=== PATIENT | female | born 1980 | race Caucasian/White ===

== ENCOUNTER 2017-09-08 07:10 | Inpatient (IN) | payer MEDICAID, SELFPAY ==
[2017-09-08] VITALS (7 sets, daily range): BP systolic 110–125; BP diastolic 64–79; PULSE 73–94; RESP 16–20; TEMP 36.1–37.4; O2SAT 97–100; BMI 16.9; BMI 18.1
--- NOTE | 2017-09-08 07:25 | ED.VISSUMM ---
- ER Visit Summary Date of Service: 09/08/17 Chief Complaint: Heroin withdrawal History of Present Illness: The patient is a 37 F who presents with nausea and vomiting that began last night. Patient states she normally uses 1 g of heroin per day and her last use was 2 days ago. Patient states she is having some abdominal cramping and restlessness. Patient denies any fevers. Patient denies any diarrhea but thinks she may be starting to get diarrhea. Patient denies any chest pain or palpitations. Physical Examination: Vital signs are stable. Patient is afebrile. Patient is in no acute distress. Oral mucosa is pink and moist. Pupils are equal, round, and reactive to light bilaterally. Heart was regular rate and rhythm. Lungs are clear and equal bilaterally. Abdomen is soft. Bowel sounds are normal. There is mild diffuse tenderness. There is no rebound or guarding noted. Cranial nerves II through XII are intact. There are no focal motor or sensory deficits noted. Emergency Department Course and Treatment: Patient was given a dose of Benadryl here for her restless legs. Patient had no improvement with this. Patient was given a dose of Ativan here. Patient was given IV fluids. CBC and comprehensive metabolic profile were obtained and are pending. [facility] was in to evaluate the patient and stated the patient did meet criteria for inpatient treatment. Case was discussed with the hospitalist. Patient will be admitted for detox. Disposition: Admission Impression: Opiate withdrawal This note was generated with [employer] dictation software. It may contain incorrect words, spelling, and punctuation that were not noted in review of the chart prior to signing ED Disposition - Plan for ED Patient: Disposition: Acute Care Hospital [facility] Chief Complaint: Subst Abuse Diagnosis: Opiate withdrawal Referrals: NOT,DEFINED [NON-STAFF] -
--- NOTE | 2017-09-08 07:28 | ED.DCSUM_ITS ---
- ER Visit Summary Date of Service: 09/08/17 Chief Complaint: Heroin withdrawal History of Present Illness: The patient is a 37 F who presents with nausea and vomiting that began last night. Patient states she normally uses 1 g of heroin per day and her last use was 2 days ago. Patient states she is having some abdominal cramping and restlessness. Patient denies any fevers. Patient denies any diarrhea but thinks she may be starting to get diarrhea. Patient denies any chest pain or palpitations. Physical Examination: Vital signs are stable. Patient is afebrile. Patient is in no acute distress. Oral mucosa is pink and moist. Pupils are equal, round, and reactive to light bilaterally. Heart was regular rate and rhythm. Lungs are clear and equal bilaterally. Abdomen is soft. Bowel sounds are normal. There is mild diffuse tenderness. There is no rebound or guarding noted. Cranial nerves II through XII are intact. There are no focal motor or sensory deficits noted. Emergency Department Course and Treatment: Patient was given a dose of Benadryl here for her restless legs. Patient had no improvement with this. Patient was given a dose of Ativan here. Patient was given IV fluids. CBC and comprehensive metabolic profile were obtained and are pending. [facility] was in to evaluate the patient and stated the patient did meet criteria for inpatient treatment. Case was discussed with the hospitalist. Patient will be admitted for detox. Disposition: Admission Impression: Opiate withdrawal This note was generated with [employer] dictation software. It may contain incorrect words, spelling, and punctuation that were not noted in review of the chart prior to signing ED Disposition - Plan for ED Patient: Disposition: Acute Care Hospital [facility] Chief Complaint: Subst Abuse Diagnosis: Opiate withdrawal Referrals: NOT,DEFINED [NON-STAFF] -
[2017-09-08] MEDS: 0.9% Normal Saline 1,000 ML 1000 ML IV (07:35)
[2017-09-08] MEDS: Ondansetron 4 MG/2 ML Vial IV (07:35)
[2017-09-08] MEDS: DiphenhydrAMINE 50 MG/ML Syringe 25 MG IV (07:36)
[2017-09-08 08:23] LABS: Absolute Lymphocyte Count 1.16 X10^3/ul (0.83-4.51); Absolute Neutrophil Count 11.1 X10^3/uL (2.0-7.7); Basophil# 0.01 X10^3/uL; Basophil% 0.1 % (0-1); Hematocrit 44.9 % (37-47); Hemoglobin 15.4 g/dl (12.0-15.0); Lymphocyte # 1.16 X10^3/ul (4.0); Lymphocyte % 9.2 % (19-41); Mean Corp Hgb Conc 34.3 g/gl (32-36); Mean Corpuscular Volume 90.3 fL (81-99); Mean Platelet Vol. 9.6 fl (6.2-12.0); Monocyte# 0.34 X10^3/uL; Monocyte% 2.7 % (0-10); Neutrophil # 11.07 X10^3/uL (2.7-7.7); Neutrophil % 87.7 % (47-70); Platelet Count 269 K/mm3 (150-450); RBC Distribution Width CV 13.1 % (11.6-14.6); RBC Distribution Width SD 42.8 fl (35.1-43.9); Red Blood Count 4.97 M/mm3 (4.2-5.4); White Blood Count 12.6 K/mm3 (4.4-11.0)
[2017-09-08 08:24] LABS: POSITIVE COUNT NO; POSITIVE DIFFERENTIAL NO; POSITIVE MORPHOLOGY NO
[2017-09-08 08:37] LABS: ALB/GLOB Ratio 0.8 RATIO (0.9-2.4); AST(SGOT) 41 U/L (15-37); Alanine Aminotransfer ALT/SGPT 62 U/L (13-56); Albumin, Serum 3.8 g/dL (3.2-5.0); Alkaline Phosphatase 44 U/L (45-117); Anion Gap 9 (5-15); BUN 12 mg/dL (7-18); BUN/Creat Ratio 16.1 RATIO (10-20); Calcium,Total 9.2 mg/dL (8.5-10.1); Chloride 106 mmol/L (98-107); Creatinine, Serum 0.75 mg/dL (0.55-1.02); EST Glomerular Filtration Rate 94 mL/min (>60); Est Glom Filt Rate - Afr Amer 113 mL/min (>60); Estimated Creatinine Clearance 78.72 ml/min; Globulin 4.7 g/dL (2.2-4.2); Glucose 137 mg/dL (74-106); Potassium 3.5 mmol/L (3.5-5.1); Protein, Total 8.5 g/dL (6.4-8.2); Sodium Level 140 mmol/L (136-145)
[2017-09-08] MEDS: LORazepam 2 MG/ML Syringe 1 MG IV (08:38)
[2017-09-08 08:42] LABS: Pregnancy, Serum, hCG Quali. NEGATIVE Negative (0-9 Nonpreg)
--- NOTE | 2017-09-08 09:41 | PCM.HP.STD ---
Problem List (1) Tobacco abuse Status: Chronic (2) Hepatitis C Status: Chronic (3) Opiate withdrawal Status: Acute History of Present Illness Date of Admission: 09/08/17 Chief Complaint: Heroin withdrawal. The patient is a 37 year old F with past medical history as mentioned above presented to the emergency room because of restlessness, shakiness with nausea and vomiting. His symptoms started last night mainly with intractable nausea and vomiting, more than 8 times since last night, associated with vague generalized abdominal pain described as crampy pain, not radiating and without aggravating or relieving factors. Her other complaint was restlessness and anxiety. She complains of restless legs that has been going on since yesterday, very hard to control and associated with shakiness of her body. She has been using IV heroin for the last 10 years almost daily. She uses around 1 g of heroin every day and her last dose was Thursday evening. No chest pain or shortness of breath. Denied cough or sputum production. She denies fever or chills. She denies diarrhea or constipation. In the emergency room, her vital signs were stable. Her routine blood work was remarkable for mild leukocytosis. LFT revealed slightly elevated liver transaminases likely because of chronic hepatitis C. Serum test was negative. She is being admitted for acute opioid withdrawal for medical stabilization. Past Medical History Past Medical History (Chronic Problems): Chronic Problems Tobacco abuse (Chronic) Hepatitis C (Chronic) Allergies No Known Allergies Allergy (Verified 09/08/17 07:14) Home Medications: Ambulatory Orders Medication Instructions Recorded NK [NK] 09/08/17 Surgical History: - - Tubal ligation. 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 Denies: Chills, Fever, Weakness Eyes: Denies: Blurred vision, Double vision, Drainage, Redness HEENT: Denies: Difficulty Hearing, Ear Pain, Eye Pain, Nasal Congestion, Sore Throat Cardiovascular: Denies: Chest Pain, Chest Pressure, Edema, Heaviness, Palpitations, Syncope Respiratory: Denies: Cough, Pleuritic Pain, Shortness of Breath, Sputum production, Wheezing Gastrointestinal: Reports: Abdominal Pain, Diarrhea, Nausea, Vomiting. Denies: Constipation, Hematochezia, Melena Genitourinary: Denies: Dysuria, Frequency, Hematuria Musculoskeletal: Denies: Arm Pain, Back Pain, Foot Pain Skin: Denies: Dryness, Rash Neurological: Denies: Balance problems, Change in Speech, Slurred speech, Confusion, Headaches, Incoordination, Numbness Psychiatric: Reports: Anxiety. Denies: Depression, Homicidal Ideations, Suicidal Ideations Endocrine: Denies: Change in Body Habitus, Polydipsia VTE Information - Inpt Only VTE Present on Admission: No VTE Mechan Device Prophylaxis: None VTE Pharm Prophylaxis ordered?: No Patient Problems: Active and Suspected Problems Opiate withdrawal (Acute) - Physical Exam General: Alert, Oriented x3, Cooperative, - - Anxious, restless. HEENT: Atraumatic, PERRLA, EOMI Oral: Moist Mucosa, No Gingival or Mucosal Lesions/ Ulcerations Neck: Supple, No JVD, Negative Carotid Bruits, Trachea Midline, Thyroid Normal Size and Texture Lungs: Clear to auscultation, No rhonchi, No wheeze, No rales, Diminished Cardiovascular: Regular rate, Regular Rhythm, Normal S1, Normal S2, No murmurs, PMI Normal Abdomen: Bowel Sounds Present, Soft, Non Tender, Non-Distended, No Hepato-splenomegaly Extremities: No clubbing, No cyanosis, No edema Skin: No rashes, No breakdown Lymphatic: No Cervical, Supraclavicular, or Inguinal Adenopathy Neurological: Cranial nerves II-XII grossly intact, Motor Exam 5/5 strength throughout Psych/Mental Status: Anxious, Restless Vital Signs Temp Pulse Resp BP Pulse Ox 98.9 F 73 18 118/72 100 09/08/17 09:24 09/08/17 09:24 09/08/17 09:24 09/08/17 09:24 09/08/17 08:39 Weight: 112 lb 6.972 oz Body Mass Index (BMI) 18.1 Laboratory Tests 09/08/17 09/08/17 09/08/17 Range/Units 08:10 08:10 08:10 WBC 12.6 H (4.4-11.0) K/mm3 RBC 4.97 (4.2-5.4) M/mm3 Hgb 15.4 H (12.0-15.0) g/dl Hct 44.9 (37-47) % MCV 90.3 (81-99) fL MCH 31.0 (27.0-32.0) pg MCHC 34.3 (32-36) g/gl RDW 13.1 (11.6-14.6) % RDW Differential 42.8 (35.1-43.9) fl Plt Count 269 (150-450) K/mm3 MPV 9.6 (6.2-12.0) fl Immature Gran % (Auto) 0.300 (0.0-0.9) % Neut % (Auto) 87.7 H (47-70) % Lymph % (Auto) 9.2 L (19-41) % [place] % (Auto) 2.7 (0-10) % Eos % (Auto) 0.0 (0-5) % Baso % (Auto) 0.1 (0-1) % Absolute Neuts (auto) 11.1 H (2.0-7.7) X10^3/uL Absolute Lymphs (auto) 1.16 (0.83-4.51) X10^3/ul Total Counted Not Reportable Sodium 140 (136-145) mmol/L Potassium 3.5 (3.5-5.1) mmol/L Chloride 106 (98-107) mmol/L Carbon Dioxide 25.0 (21.0-32.0) mmol/L Anion Gap 9 (5-15) BUN 12 (7-18) mg/dL Creatinine 0.75 (0.55-1.02) mg/dL Estim Creat Clear Calc 78.72 ml/min Est GFR (MDRD) Af Amer 113 (>60) mL/min Est GFR (MDRD) Non-Af 94 (>60) mL/min BUN/Creatinine Ratio 16.1 (10-20) RATIO Glucose 137 H (74-106) mg/dL Calcium 9.2 (8.5-10.1) mg/dL Total Bilirubin 0.40 (0.20-1.00) mg/dL AST 41 H (15-37) U/L ALT 62 H (13-56) U/L Alkaline Phosphatase 44 L (45-117) U/L Total Protein 8.5 H (6.4-8.2) g/dL Albumin 3.8 (3.2-5.0) g/dL Globulin 4.7 H (2.2-4.2) g/dL Albumin/Globulin Ratio 0.8 L (0.9-2.4) RATIO Serum , Qual NEGATIVE (0-9 Nonpreg) Negative Assessment/Plan Active and Suspected Problems Opiate withdrawal (Acute) This is a 37 years old female patient presented to the medicine because of symptoms of restlessness, shakiness, restlessness, nausea and vomiting as well as vague abdominal pain in context of 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 #1 acute opioid withdrawal: Patient has been using IV heroin for the last 10 years, almost daily, around 1 g of heroin every day. Last use was this past Thursday. She denied use of any other drugs. She is a smoker but denied alcohol drinking. She never been on detox program in the past. At this time, vital signs are stable. Routine blood work is remarkable for mild leukocytosis likely because of acute distress and anxiety. Serum test was negative. Plan: Admit to [facility] floor, regular diet, check serum lipase, urine drug screen, blood alcohol level, initiate [facility] protocol with tapering course of Subutex, as needed Tylenol, Catapres, Bentyl, Vistaril, methocarbamol, Zofran, Mirapex and Seroquel. #2 chronic hepatitis C: According to the patient, she had liver biopsy last year and she was told that there is no indication for treatment. Her liver transaminases are slightly elevated. Plan to monitor. #3 tobacco abuse: NicoDerm patches decided. #4 DVT prophylaxis: Low risk patient, no prophylaxis indicated. This note was generated with [employer] software. It may contain incorrect words, spelling, and punctuation that were not noted in checking the note before signing. Code Visit Inpatient E&M: 75451 Init Hosp L2
--- NOTE | 2017-09-08 09:46 | HP.PCM_ITS ---
Problem List (1) Tobacco abuse Status: Chronic (2) Hepatitis C Status: Chronic (3) Opiate withdrawal Status: Acute History of Present Illness Date of Admission: 09/08/17 Chief Complaint: Heroin withdrawal. The patient is a 37 year old F with past medical history as mentioned above presented to the emergency room because of restlessness, shakiness with nausea and vomiting. His symptoms started last night mainly with intractable nausea and vomiting, more than 8 times since last night, associated with vague generalized abdominal pain described as crampy pain, not radiating and without aggravating or relieving factors. Her other complaint was restlessness and anxiety. She complains of restless legs that has been going on since yesterday , very hard to control and associated with shakiness of her body. She has been using IV heroin for the last 10 years almost daily. She uses around 1 g of heroin every day and her last dose was Thursday evening. No chest pain or shortness of breath. Denied cough or sputum production. She denies fever or chills. She denies diarrhea or constipation. In the emergency room, her vital signs were stable. Her routine blood work was remarkable for mild leukocytosis. LFT revealed slightly elevated liver transaminases likely because of chronic hepatitis C. Serum test was negative. She is being admitted for acute opioid withdrawal for medical stabilization. Past Medical History Past Medical History (Chronic Problems): Chronic Problems Tobacco abuse (Chronic) Hepatitis C (Chronic) Allergies No Known Allergies Allergy (Verified 09/08/17 07:14) Home Medications: Ambulatory Orders Medication Instructions Recorded NK [NK] 09/08/17 Surgical History: - - Tubal ligation. 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 Denies: Chills, Fever, Weakness Eyes: Denies: Blurred vision, Double vision, Drainage, Redness HEENT: Denies: Difficulty Hearing, Ear Pain, Eye Pain, Nasal Congestion, Sore Throat Cardiovascular: Denies: Chest Pain, Chest Pressure, Edema, Heaviness, Palpitations, Syncope Respiratory: Denies: Cough, Pleuritic Pain, Shortness of Breath, Sputum production, Wheezing Gastrointestinal: Reports: Abdominal Pain, Diarrhea, Nausea, Vomiting. Denies: Constipation, Hematochezia, Melena Genitourinary: Denies: Dysuria, Frequency, Hematuria Musculoskeletal: Denies: Arm Pain, Back Pain, Foot Pain Skin: Denies: Dryness, Rash Neurological: Denies: Balance problems, Change in Speech, Slurred speech, Confusion, Headaches, Incoordination, Numbness Psychiatric: Reports: Anxiety. Denies: Depression, Homicidal Ideations, Suicidal Ideations Endocrine: Denies: Change in Body Habitus, Polydipsia VTE Information - Inpt Only VTE Present on Admission: No VTE Mechan Device Prophylaxis: None VTE Pharm Prophylaxis ordered?: No Patient Problems: Active and Suspected Problems Opiate withdrawal (Acute) - Physical Exam General: Alert, Oriented x3, Cooperative, - - Anxious, restless. HEENT: Atraumatic, PERRLA, EOMI Oral: Moist Mucosa, No Gingival or Mucosal Lesions/ Ulcerations Neck: Supple, No JVD, Negative Carotid Bruits, Trachea Midline, Thyroid Normal Size and Texture Lungs: Clear to auscultation, No rhonchi, No wheeze, No rales, Diminished Cardiovascular: Regular rate, Regular Rhythm, Normal S1, Normal S2, No murmurs, PMI Normal Abdomen: Bowel Sounds Present, Soft, Non Tender, Non-Distended, No Hepato- splenomegaly Extremities: No clubbing, No cyanosis, No edema Skin: No rashes, No breakdown Lymphatic: No Cervical, Supraclavicular, or Inguinal Adenopathy Neurological: Cranial nerves II-XII grossly intact, Motor Exam 5/5 strength throughout Psych/Mental Status: Anxious, Restless Vital Signs Temp Pulse Resp BP Pulse Ox 98.9 F 73 18 118/72 100 09/08/17 09:24 09/08/17 09:24 09/08/17 09:24 09/08/17 09:24 09/08/17 08:39 Weight: 112 lb 6.972 oz Body Mass Index (BMI) 18.1 Laboratory Tests 3 09/08/17 09/08/17 09/08/17 Range/Units 08:10 08:10 08:10 WBC 12.6 H (4.4-11.0) K/mm3 RBC 4.97 (4.2-5.4) M/mm3 Hgb 15.4 H (12.0-15.0) g/dl Hct 44.9 (37-47) % MCV 90.3 (81-99) fL MCH 31.0 (27.0-32.0) pg MCHC 34.3 (32-36) g/gl RDW 13.1 (11.6-14.6) % RDW Differential 42.8 (35.1-43.9) fl Plt Count 269 (150-450) K/mm3 MPV 9.6 (6.2-12.0) fl Immature Gran % (Auto) 0.300 (0.0-0.9) % Neut % (Auto) 87.7 H (47-70) % Lymph % (Auto) 9.2 L (19-41) % [place] % (Auto) 2.7 (0-10) % Eos % (Auto) 0.0 (0-5) % Baso % (Auto) 0.1 (0-1) % Absolute Neuts (auto) 11.1 H (2.0-7.7) X10^3/uL Absolute Lymphs (auto) 1.16 (0.83-4.51) X10^3/ul Total Counted Not Reportable Sodium 140 (136-145) mmol/L Potassium 3.5 (3.5-5.1) mmol/L Chloride 106 (98-107) mmol/L Carbon Dioxide 25.0 (21.0-32.0) mmol/L Anion Gap 9 (5-15) BUN 12 (7-18) mg/dL Creatinine 0.75 (0.55-1.02) mg/dL Estim Creat Clear Calc 78.72 ml/min Est GFR (MDRD) Af Amer 113 (>60) mL/min Est GFR (MDRD) Non-Af 94 (>60) mL/min BUN/Creatinine Ratio 16.1 (10-20) RATIO Glucose 137 H (74-106) mg/dL Calcium 9.2 (8.5-10.1) mg/dL Total Bilirubin 0.40 (0.20-1.00) mg/dL AST 41 H (15-37) U/L ALT 62 H (13-56) U/L Alkaline Phosphatase 44 L (45-117) U/L Total Protein 8.5 H (6.4-8.2) g/dL Albumin 3.8 (3.2-5.0) g/dL Globulin 4.7 H (2.2-4.2) g/dL Albumin/Globulin Ratio 0.8 L (0.9-2.4) RATIO Serum , Qual NEGATIVE (0-9 Nonpreg) Negative Assessment/Plan Active and Suspected Problems Opiate withdrawal (Acute) This is a 37 years old female patient presented to the medicine because of symptoms of restlessness, shakiness, restlessness, nausea and vomiting as well as vague abdominal pain in context of 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 #1 acute opioid withdrawal: Patient has been using IV heroin for the last 10 years, almost daily, around 1 g of heroin every day. Last use was this past Thursday. She denied use of any other drugs. She is a smoker but denied alcohol drinking. She never been on detox program in the past. At this time, vital signs are stable. Routine blood work is remarkable for mild leukocytosis likely because of acute distress and anxiety. Serum test was negative. Plan: Admit to [facility] floor, regular diet, check serum lipase, urine drug screen, blood alcohol level, initiate [facility] protocol with tapering course of Subutex, as needed Tylenol, Catapres, Bentyl, Vistaril, methocarbamol, Zofran, Mirapex and Seroquel. #2 chronic hepatitis C: According to the patient, she had liver biopsy last year and she was told that there is no indication for treatment. Her liver transaminases are slightly elevated. Plan to monitor. #3 tobacco abuse: NicoDerm patches decided. #4 DVT prophylaxis: Low risk patient, no prophylaxis indicated. This note was generated with [employer] software. It may contain incorrect words, spelling, and punctuation that were not noted in checking the note before signing. Code Visit Inpatient E&M: 57791 Init Hosp L2
[2017-09-08] MEDS: Dicyclomine 10 MG Capsule 20 MG PO ×3 (09:48→23:36)
[2017-09-08] MEDS: QUEtiapine 25 MG Tablet PO ×3 (09:48→23:37)
[2017-09-08] MEDS: Methocarbamol 750 MG Tablet PO ×3 (09:48→23:37)
[2017-09-08] MEDS: cloNIDine HCl 0.1 MG Tablet PO ×5 (09:48→22:32)
[2017-09-08] MEDS: Buprenorphine HCl 2 MG TAB.SUBL SL ×2 (09:48→17:28)
[2017-09-08 10:03] LABS: Lipase 109 U/L (73-393)
[2017-09-08 10:24] LABS: International Normalized Ratio 1.1; Prothrombin Time (Protime)PT. 13.8 SECONDS (11.7-14.9)
[2017-09-08 10:35] LABS: Alcohol, Blood (Medical)-Serum < 3.0 mg/dL
[2017-09-08 11:20] LABS: Amphetamine Urine VISTA NEGATIVE (<1000 ng/mL); Barbiturate Urine VISTA NEGATIVE (< 200 ng/mL); Benzodiazepine Urine VISTA NEGATIVE (< 200 ng/mL); Cocaine Urine VISTA NEGATIVE (< 300 ng/mL); Ecstacy Urine VISTA NEGATIVE (< 500 ng/mL); Methadone Urine VISTA NEGATIVE (< 300 ng/mL); PCP Urine VISTA NEGATIVE (< 25 ng/mL); THC Urine VISTA NEGATIVE (< 50 ng/mL); Vista UDS pH Range 5
[2017-09-08] MEDS: Ondansetron ODT 4 MG Tablet PO ×3 (11:48→23:37)
[2017-09-08] MEDS: hydrOXYzine PAM 25 MG Capsule 50 MG PO ×2 (12:57→19:35)
[2017-09-08] MEDS: Pramipexole Di-HCl 0.25 MG Tablet PO (12:57)
[2017-09-08] MEDS: Famotidine 20 MG Tablet PO ×2 (17:27→22:32)
--- NOTE | 2017-09-08 18:40 | NURSING ---
1725-PT CALLED OUT REPORTING BLOOD IN EMESIS. UPON ASSESSMENT OF EMESIS-NOTED TO BE BILE COLORED, NO BLOOD NOTED. PT STATES NAUSEA REMAINS PERSISTENT--200 CC EMESIS NOTED IN EMESIS BAG, LINENS WITH SMALL AMOUNT OF SHEETS. LINENS CHANGED FOR PATIENT, NEW GOWN OFFERED. MOVED AROUND IN BED WITHOUT DIFFICULTY. PT STATED WHILE CHANGING LINENS THAT SHE HAD FALLEN WHILE WALKING TO RESTROOM. DENIES HITTING HEAD, ONLY STATES SHE FELL TO HER KNEES. WILL NOTIFY MD. PT DENIES PAIN TO KNEES, NO OPEN AREAS VISUALIZED. MEDICATED FOR ANXIETY/NAUSEA (SEE MAR). BED EXIT PLACED ON PATIENT AND NOTIFIED TO CALL OUT FOR ASSISTANCE WITH AMBULATION. PT VERIFIED UNDERSTANDING, AGREES TO COMPLY AT THIS TIME. REQUESTING ATIVAN, STATES IT HELPED WHEN SHE WAS DOWNSTAIRS. PT STATES MEDICATIONS HAVE NOT BEEN EFFECTIVE AT THIS POINT. WILL CONSULT WITH .
[2017-09-08] MEDS: LORazepam 1 MG Tablet PO (19:01)
[2017-09-09] MEDS: cloNIDine HCl 0.1 MG Tablet PO ×4 (01:42→22:05)
[2017-09-09] MEDS: Buprenorphine HCl 2 MG TAB.SUBL SL ×3 (01:42→17:35)
[2017-09-09 01:45] VITALS: BP 116/75; PULSE 79; RESP 16; TEMP 37
[2017-09-09 05:34] VITALS: BP 128/79; PULSE 79; RESP 16; TEMP 37
[2017-09-09] MEDS: Methocarbamol 750 MG Tablet PO ×3 (05:37→17:38)
[2017-09-09] MEDS: QUEtiapine 25 MG Tablet PO ×3 (05:37→19:49)
[2017-09-09] MEDS: Ondansetron ODT 4 MG Tablet PO (05:37)
--- NOTE | 2017-09-09 08:51 | PCM.PROGNOTE ---
Patient Problems: Active and Suspected Problems Opiate withdrawal (Acute) Subjective: Chief complaint: Follow-up after admission for opioid withdrawal for medical stabilization. Patient seen and examined. No acute events overnight. Today, she reported improvement of her symptoms. She is more resting and comfortable. She has no more restless legs. All over, she is feeling better. Vital signs are stable. - Physical Exam General: Alert, Oriented x3, Cooperative, No apparent distress HEENT: Atraumatic, PERRLA, EOMI Oral: Moist Mucosa, No Gingival or Mucosal Lesions/ Ulcerations Neck: Supple, No JVD, Negative Carotid Bruits, Trachea Midline, Thyroid Normal Size and Texture Lungs: Clear to auscultation, Normal air movement, No rhonchi, No wheeze, No rales Cardiovascular: Regular rate, Regular Rhythm, Normal S1, Normal S2, No murmurs Abdomen: Bowel Sounds Present, Soft, Non Tender, Non-Distended, No Hepato-splenomegaly Extremities: No clubbing, No cyanosis, No edema Skin: No rashes, No breakdown Lymphatic: No Cervical, Supraclavicular, or Inguinal Adenopathy Neurological: Cranial nerves II-XII grossly intact, Motor Exam 5/5 strength throughout Psych/Mental Status: Flat Affect, Alert and oriented to time, place, person, mood and affect Vital Signs Temp Pulse Resp BP Pulse Ox 98.6 F 79 16 128/79 H 100 09/09/17 05:34 09/09/17 05:34 09/09/17 05:34 09/09/17 05:34 09/08/17 08:39 Oxygen Delivery Method Room Air Weight: 112 lb 6.972 oz Body Mass Index (BMI) 18.1 Intake and Output for Last 24 Hours 09/07/17 09/08/17 09/09/17 23:59 23:59 23:59 Intake Total 1250 / 1250 750 / 750 Output Total 600 / 600 Balance 650 / 650 750 / 750 Laboratory Tests Past 24 Hrs 09/08/17 09/08/17 09/08/17 10:00 10:00 10:30 PT 13.8 INR 1.1 Urine Opiates Screen POSITIVE H Urine Methadone Screen NEGATIVE Ur Barbiturates Screen NEGATIVE Ur Phencyclidine Scrn NEGATIVE Ur Amphetamines Screen NEGATIVE U Methamphetamin-MDMA NEGATIVE U Benzodiazepines Scrn NEGATIVE Urine Cocaine Screen NEGATIVE U Cannabinoids Screen NEGATIVE Ur Drug Screen Comment Ethyl Alcohol < 3.0 Medical Necessity - Tobacco Use Smoking Status: Current every day smoker Tobacco Use: Cigarettes Assessment/Plan Active and Suspected Problems Opiate withdrawal (Acute) This is a 37 years old female patient presented to the medicine because of symptoms of restlessness, shakiness, restlessness, nausea and vomiting as well as vague abdominal pain in context of 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 #1 acute opioid withdrawal: She is on [facility] protocol with tapering course of Subutex, as needed Catapres, Bentyl, Vistaril, methocarbamol, Mirapex and Seroquel. Patient reported improvement of her symptoms, she is anxious and less restless. Her vital signs are stable. Urine drug screen was positive for opioids. Blood alcohol level was less than 3. Plan: Continue same treatment. #2 chronic hepatitis C: According to the patient, she had liver biopsy last year and she was told that there is no indication for treatment. Her liver transaminases are slightly elevated. Plan to monitor. #3 tobacco abuse: On NicoDerm patch. #4 DVT prophylaxis: Low risk patient, no prophylaxis indicated. This note was generated with [employer] dictation software. It may contain incorrect words, spelling, and punctuation that were not noted in checking the note before signing. Code Visit Inpatient E&M: 56740 Subs Hosp L2
[2017-09-09] MEDS: Famotidine 20 MG Tablet PO ×2 (09:07→22:04)
[2017-09-09] MEDS: Dicyclomine 10 MG Capsule 20 MG PO (09:14)
[2017-09-09] MEDS: Acetaminophen 500 MG Tablet PO (09:14)
[2017-09-09] MEDS: hydrOXYzine PAM 25 MG Capsule 50 MG PO ×2 (09:14→17:38)
[2017-09-09 09:15] VITALS: BP 106/63; PULSE 66; RESP 18; TEMP 36.8; O2SAT 98
[2017-09-09] MEDS: Pramipexole Di-HCl 0.25 MG Tablet PO ×2 (09:40→22:06)
--- NOTE | 2017-09-09 13:04 | CHAPLAIN ---
Type of Pastoral Visit _x__ Initial Visit ___ Follow-up Visit ___ On-call Visit ___ General Patient Visit ___ Spiritual Assessment ___ Family Conference ___ Bereavement ___ Rapid Response ___ Code Blue ___ Other (describe below) Pastoral Care Referral From _x__ Patient ___ Family ___ Nurse ___ Physician ___ Sweat Band Separator ___ Repair Table Operator ___ Other (describe below) Sacrament/Intervention _x__ Active listening ___ Anointing ___ Church ___ Bereavement ___ Communion ___ Lacey exploration ___ ___ Life review _x__ Prayer ___ Reconciliation ___ Sacrament of Sick _x__ Supportive presence ___ Wedding ___ Other (describe below) Pastoral Comments patient speaks of having one year sobriety and then relapse; pt has support from past counselor and transitional home; 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
[2017-09-09 13:55] VITALS: BP 103/65; PULSE 72; RESP 16; TEMP 37.2
[2017-09-09 17:41] VITALS: BP 100/68; PULSE 78; RESP 18; TEMP 36.9
[2017-09-09 21:46] VITALS: BP 105/72; PULSE 68; RESP 16; TEMP 36.8
[2017-09-09] MEDS: traZODone 50 MG Tablet PO (22:23)
[2017-09-10] VITALS (8 sets, daily range): BP systolic 105–121; BP diastolic 59–72; PULSE 58–84; RESP 16–18; TEMP 36.5–36.9; O2SAT 97–100
[2017-09-10] MEDS: Buprenorphine HCl 2 MG TAB.SUBL SL ×2 (01:48→13:48)
[2017-09-10] MEDS: hydrOXYzine PAM 25 MG Capsule 50 MG PO ×3 (01:48→18:00)
[2017-09-10] MEDS: Dicyclomine 10 MG Capsule 20 MG PO ×2 (01:48→09:03)
[2017-09-10] MEDS: Methocarbamol 750 MG Tablet PO (06:35)
[2017-09-10] MEDS: QUEtiapine 25 MG Tablet PO ×2 (06:35→21:09)
[2017-09-10] MEDS: Ondansetron ODT 4 MG Tablet PO (06:35)
--- NOTE | 2017-09-10 08:23 | PCM.PROGNOTE ---
Patient Problems: Active and Suspected Problems Opiate withdrawal (Acute) Subjective: Chief complaint: Follow-up after admission for opioid withdrawal for medical stabilization. Patient seen and examined. No acute events overnight. This morning, she complained of right-sided abdominal/flank pain with nausea. She denied fever chills. She denies urinary symptoms. She does not have her period at this time. Her vital signs are stable, afebrile. - Physical Exam General: Alert, Oriented x3, Cooperative, No apparent distress HEENT: Atraumatic, PERRLA, EOMI Oral: Moist Mucosa, No Gingival or Mucosal Lesions/ Ulcerations Neck: Supple, No JVD, Negative Carotid Bruits, Trachea Midline, Thyroid Normal Size and Texture Lungs: Clear to auscultation, Normal air movement, No rhonchi, No wheeze, No rales Cardiovascular: Regular rate, Regular Rhythm, Normal S1, Normal S2, PMI Normal Abdomen: Bowel Sounds Present, Soft, Non Tender, Non-Distended, No Hepato-splenomegaly Extremities: No clubbing, No cyanosis, No edema Skin: No rashes, No breakdown Lymphatic: No Cervical, Supraclavicular, or Inguinal Adenopathy Neurological: Cranial nerves II-XII grossly intact, Motor Exam 5/5 strength throughout Psych/Mental Status: Flat Affect, Alert and oriented to time, place, person, mood and affect Vital Signs Temp Pulse Resp BP Pulse Ox 98.1 F 58 L 16 107/70 98 09/10/17 01:45 09/10/17 01:45 09/10/17 01:45 09/10/17 01:45 09/09/17 09:15 Oxygen Delivery Method Room Air Weight: 112 lb 6.972 oz Body Mass Index (BMI) 18.1 Intake and Output for Last 24 Hours 09/08/17 09/09/17 09/10/17 23:59 23:59 23:59 Intake Total 1250 / 1250 1550 / 1550 660 / 660 Output Total 600 / 600 Balance 650 / 650 1550 / 1550 660 / 660 Medical Necessity - Tobacco Use Smoking Status: Current every day smoker Tobacco Use: Cigarettes Assessment/Plan Active and Suspected Problems Opiate withdrawal (Acute) This is a 37 years old female patient presented to the medicine because of symptoms of restlessness, shakiness, restlessness, nausea and vomiting as well as vague abdominal pain in context of 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 #1 acute opioid withdrawal: Remained on [facility] protocol with tapering course of Subutex, as needed Catapres, Bentyl, Vistaril, methocarbamol, Mirapex and Seroquel. Patient reported improvement of her symptoms. Her vital signs are stable. Urine drug screen was positive for opioids. Blood alcohol level was less than 3. This morning, she complained of right abdominal/flank pain with nausea, no associated symptoms. Unclear etiology. Patient stated that could be because she has been staying in the bed for so long time. Plan: Continue same treatment, monitor patient for this abdominal pain and if did not improve, might need to do imaging study. #2 chronic hepatitis C: According to the patient, she had liver biopsy last year and she was told that there is no indication for treatment. Her liver transaminases are slightly elevated. Plan to monitor. #3 tobacco abuse: On NicoDerm patch. #4 DVT prophylaxis: Low risk patient, no prophylaxis indicated. This note was generated with Seriously dictation software. It may contain incorrect words, spelling, and punctuation that were not noted in checking the note before signing. Code Visit Inpatient E&M: 13060 Subs Hosp L2
[2017-09-10] MEDS: cloNIDine HCl 0.1 MG Tablet PO (09:03)
[2017-09-10] MEDS: Famotidine 20 MG Tablet PO ×2 (09:10→21:10)
[2017-09-10] MEDS: Magnesium Hydroxide 30 ML UDC PO (10:31)
[2017-09-10] MEDS: traZODone 50 MG Tablet PO (21:09)
[2017-09-11] MEDS: Buprenorphine HCl 2 MG TAB.SUBL SL (02:18)
[2017-09-11 02:22] VITALS: BP 107/67; PULSE 72; RESP 18; TEMP 36.8
[2017-09-11 07:41] VITALS: BP 104/72; PULSE 83; RESP 16; TEMP 36.8; O2SAT 99
[2017-09-11] MEDS: Pramipexole Di-HCl 0.25 MG Tablet PO (07:45)
[2017-09-11] MEDS: Famotidine 20 MG Tablet PO (07:45)
[2017-09-11] MEDS: hydrOXYzine PAM 25 MG Capsule 50 MG PO (07:48)
[2017-09-11] MEDS: cloNIDine HCl 0.1 MG Tablet PO (07:48)
[2017-09-11] MEDS: Methocarbamol 750 MG Tablet PO (07:48)
--- NOTE | 2017-09-11 08:40 | DCINST_ITS ---
- Discharge Diagnoses Current Active Problems: Current Active and Chronic Problems Tobacco abuse (Chronic) Hepatitis C (Chronic) Opiate withdrawal (Acute) You will use the following diet at home:: Regular Your food should be the consistency of: Regular Discharge Activity: Return to Normal Activity Weight Bearing Status: Full weight bearing Call your doctor if you observe: Fever of 101 or Higher, Shortness of breath, Dizziness, Fainting spells, Chest pain, Increased palpitations (irregular heartbeat), Uncontrolled pain Additional Instructions: Please follow-up with [facility] program. Allergies/Adverse Reactions: Allergies No Known Allergies Allergy (Verified 09/08/17 07:14) Medications to take at Discharge NK [NK] 09/08/17 Primary Care Physician: NOT,DEFINED [NON-STAFF] - Please follow up with your Primary Care Physician in: as needed.
--- NOTE | 2017-09-11 13:10 | PCM.DC.SUM ---
Discharge Date and Diagnosis Date of Admission: 09/08/17 Date of Discharge: 09/11/17 - Primary Discharge Diagnosis Acute opioid withdrawal, admitted for medical stabilization. - Secondary Discharge Diagnosis Chronic Problems Tobacco abuse (Chronic) Hepatitis C (Chronic) Hospital Course and Treatment Operations: None Procedures: None Summary of Care Provided: Patient seen and examined on the day of discharge and appears to be stable to be discharged home. Her symptoms significant improved. She has no more right sided abdominal pain since yesterday. Her vital signs are stable. - Physical Exam General: Alert, Oriented x3, Cooperative, No apparent distress. HEENT: Atraumatic, PERRLA, EOMI. Neck: Supple, No JVD, Negative Carotid Bruits, Trachea Midline, Thyroid Normal. Lungs: Clear to auscultation, Normal air movement, No rhonchi, No wheeze, No rales. Cardiovascular: Regular rate, Regular Rhythm, Normal S1, Normal S2, PMI Normal. Abdomen: Bowel Sounds Present, Soft, Non Tender, Non-Distended, No Hepato-splenomegaly. Extremities: No clubbing, No cyanosis, No edema Skin: No rashes, No breakdown Neurological: Neuro grossly intact Vital Signs are stable. Hospital course: The patient is a 37 year old F admitted for acute opioid withdrawal for medical stabilization. She was presented to the emergency room because of symptoms of restlessness, shakiness, with nausea and vomiting in context of using IV heroin at least 14 years almost daily. She was treated with [facility] protocol with tapering course of Subutex, as needed Catapres, Bentyl, Vistaril, methocarbamol, Mirapex and Seroquel. Her routine blood work was remarkable for mild leukocytosis which is attributed to acute stress and withdrawal. Her LFT revealed slightly elevated liver transaminases secondary to history of chronic hepatitis C. Her lipase was normal. Serum test was negative. Urine drug screen was positive for opioids. Her blood alcohol level was done less than 3. With above-mentioned treatment, patient symptoms improved and she was discharged home in a stable medical condition, discharged on no medications and recommended to follow-up with [facility] program. Discharge Activity: Return to Normal Activity Weight Bearing Status: Full weight bearing Call your doctor if you observe: Fever of 101 or Higher, Shortness of breath, Dizziness, Fainting spells, Chest pain, Increased palpitations (irregular heartbeat), Uncontrolled pain Home Medications: Medications to take at Discharge NK [NK] 09/08/17 Primary Care Physician: NOT,DEFINED [NON-STAFF] - Please follow up with your Primary Care Physician in: as needed. Disposition: Home Minutes spent on discharge:: 25 Patient Condition:: Stable Medical Necessity - Tobacco Use Smoking Status: Current every day smoker Tobacco Use: Cigarettes Meaningful Use Info Meaningful Use Diagnoses (Choose all that apply): None applicable Code Visit Inpatient E&M: 91780 Disch Hosp
--- NOTE | 2017-09-11 13:13 | DS.PCM_ITS ---
Discharge Date and Diagnosis Date of Admission: 09/08/17 Date of Discharge: 09/11/17 - Primary Discharge Diagnosis Acute opioid withdrawal, admitted for medical stabilization. - Secondary Discharge Diagnosis Chronic Problems Tobacco abuse (Chronic) Hepatitis C (Chronic) Hospital Course and Treatment Operations: None Procedures: None Summary of Care Provided: Patient seen and examined on the day of discharge and appears to be stable to be discharged home. Her symptoms significant improved. She has no more right sided abdominal pain since yesterday. Her vital signs are stable. - Physical Exam General: Alert, Oriented x3, Cooperative, No apparent distress. HEENT: Atraumatic, PERRLA, EOMI. Neck: Supple, No JVD, Negative Carotid Bruits, Trachea Midline, Thyroid Normal. Lungs: Clear to auscultation, Normal air movement, No rhonchi, No wheeze, No rales. Cardiovascular: Regular rate, Regular Rhythm, Normal S1, Normal S2, PMI Normal. Abdomen: Bowel Sounds Present, Soft, Non Tender, Non-Distended, No Hepato- splenomegaly. Extremities: No clubbing, No cyanosis, No edema Skin: No rashes, No breakdown Neurological: Neuro grossly intact Vital Signs are stable. Hospital course: The patient is a 37 year old F admitted for acute opioid withdrawal for medical stabilization. She was presented to the emergency room because of symptoms of restlessness, shakiness, with nausea and vomiting in context of using IV heroin at least 14 years almost daily. She was treated with [facility] protocol with tapering course of Subutex, as needed Catapres, Bentyl, Vistaril, methocarbamol , Mirapex and Seroquel. Her routine blood work was remarkable for mild leukocytosis which is attributed to acute stress and withdrawal. Her LFT revealed slightly elevated liver transaminases secondary to history of chronic hepatitis C. Her lipase was normal. Serum test was negative. Urine drug screen was positive for opioids. Her blood alcohol level was done less than 3. With above-mentioned treatment, patient symptoms improved and she was discharged home in a stable medical condition, discharged on no medications and recommended to follow-up with [facility] program. Discharge Activity: Return to Normal Activity Weight Bearing Status: Full weight bearing Call your doctor if you observe: Fever of 101 or Higher, Shortness of breath, Dizziness, Fainting spells, Chest pain, Increased palpitations (irregular heartbeat), Uncontrolled pain Home Medications: Medications to take at Discharge NK [NK] 09/08/17 Primary Care Physician: NOT,DEFINED [NON-STAFF] - Please follow up with your Primary Care Physician in: as needed. Disposition: Home Minutes spent on discharge:: 25 Patient Condition:: Stable Medical Necessity - Tobacco Use Smoking Status: Current every day smoker Tobacco Use: Cigarettes Meaningful Use Info Meaningful Use Diagnoses (Choose all that apply): None applicable Code Visit Inpatient E&M: 15045 Disch Hosp
== END 2017-09-11 09:17 | disposition home or self-care (01) | DRG 434 ==
LOC: ED 08:30 → MS2 08:34
PROVIDERS: Admitting Provider Hospitalist; Emergency Provider Emergency Medicine; Visit Provider Hospitalist
DX: F11.23 Opioid dependence with withdrawal (principal); B18.2 Chronic viral hepatitis C; F17.210 Nicotine dependence, cigarettes, uncomplicated
CPT/HCPCS: 36415; 80053; 80307; 80320; 83690; 84703; 85025; 85610; 97802; 99283; 99406; J7030; A4216; G0480; J2405